=== PATIENT | male | born 1970 | race Caucasian/White ===

== ENCOUNTER 2018-07-04 09:53 | Emergency (ER) | payer OTHER, SELFPAY ==
[2018-07-04 09:56] VITALS: BP 158/102; PULSE 72; RESP 18; TEMP 36.5; O2SAT 98
--- NOTE | 2018-07-04 10:16 | ED.GENADUL_ITS ---
Discharge Plan Disposition Patient Disposition: HOME Condition: Stable Discharge Details Chief Complaint: Orthopedic Clinical Impression: Closed fracture of shaft of left radius Primary Care Provider: JOJO,LOCAL ED Provider: Rusty Newton Home Meds and New Rx's Prescriptions: New hydrocodone-acetaminophen 7.5-325 mg tablet 1 tab PO Q6H PRN (Reason: pain, severe) Qty: 14 RF: 0 ibuprofen [IBU] 600 mg tablet 600 mg PO QID PRN (Reason: pain) Qty: 20 RF: 0 Discharge Instructions Instructions: Arm Fracture in Adults (ED) Additional Instructions: Please leave splinting on at all times and follow-up with a local orthopedist first thing on Saturday for reassessment and possible further treatment as needed. Return immediately to the emergency department for any numbness and tingling, loss of sensation, changes in color of your hand. Referrals: Primary Care Provider [Outside] (If you need any recommendations or referral for an orthopedist locally please call your primary care provider) Discharge Data Discharge Date/Time-TO BE ENTERED AT DEPARTURE: 07/04/18 14:22 Medical Decision Making Patient presenting to the emergency department for chief complaint of left wrist crush injury. 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 Instantaneously he felt severe pain and discomfort and had inability to fully rotate forearm or bend his wrist. Patient is primarily left-handed so this is his dominant hand per patient denies any other injury or trauma. Forearm compartments are soft but swollen, some diminished pulses are palpated and ultrasound was utilized to fully visualize both radial and ulnar pulse that appears to have good flow. Visual examination of the skin to distal radius does show possible break in the skin with concern for open fracture. Patient has significant decreased range of motion of both the wrist and forearm. Radiological imaging was ordered for main concern of fracture but at this time I see no signs of compartment syndrome even though patient does state distal tingling. Pending results patient was okay taking oral medication but did not want any injections for pain so [place] 5/325 was ordered. Admitting radiological imaging results patient continued to have pain and discomfort patient will [place] 5/325 was ordered. After review of radiological imaging that shows a midshaft radius fracture patient was reassessed. RN had clean patient's hand and no corresponding puncture wound and only mild abrasions that patient actually states occurred a week ago during a minor injury. So at this time I doubt open fracture but patient's hand does have slight discoloration and diminished two-point discrimination to the ulnar aspect of the hand along with no dullness to sharp sensation. This is a change in patient's condition. Compartment continue to feel soft and pulses were present with ultrasound imaging. On-call orthopedist Dr. Carter was paged 3 times and never responded. I did have patient reassessed along with attending ER physician home also noted the same assessment but otherwise states that patient is stable so patient was splinted with sugar tong splint and we continue to page Dr. Carter for any further emergent request by orthopod. Was able to finally talk with Dr. Carter who agreed with plan of care for patient be placed in sugar tong splint and have close follow-up with local orthopedist on Saturday for further treatment as needed. Research drug database and patient has no signs of opiate abuse so patient was prescribed hydrocodone and ibuprofen for pain control. After discussion of diagnosis and plan of care patient is no further needs, questions, or concerns and states clear understanding to return to the emergency department for any worsening symptoms. HPI General Mode of arrival: ambulatory . Date/Time Provider Initiated Documentation: 07/04/18 09:59 . Limitations to Documentation: no limitations . Information obtained by: patient . History of Present Illness 48 year old M presents to the emergency department with the chief complaint of Left wrist/forearm crushing, described as moderate, with intensity rated at 8. Quality is described as aching and sharp, and is localized to the left and upper extremity. Patient proximal. Patient started experiencing this minute(s) (20) and it has been constant. No relieving factors improve symptom(s), Movement worsens symptoms . Patient notes no other symptoms.. Patient did receive the following treatments prior to arrival, none Related Data Home Medications Medication Instructions Recorded Confirmed hydrocodone-acetaminophen 1 tab PO Q6H PRN #14 tab 07/04/18 ibuprofen [IBU] 600 mg PO QID PRN #20 tab 07/04/18 Previous Rx's Medication Instructions Recorded hydrocodone-acetaminophen 1 tab PO Q6H PRN #14 tab 07/04/18 ibuprofen [IBU] 600 mg PO QID PRN #20 tab 07/04/18 Allergies Allergy/AdvReac Type Severity Reaction Status Date / Time No Known Allergies Allergy Unverified 07/04/18 10:00 General Stated Complaint: Orthopedic ANNIE: 4 Review of Systems Cardiovascular Denies chest pain, Denies syncope and Denies dyspnea Respiratory Denies dyspnea Musculoskeletal Reports as per HPI, Reports deformity, Reports joint swelling, Reports numbness , Reports stiffness and Reports tingling Neurologic Denies syncope, Reports numbness and Reports tingling PFSH Social History Smoking/Tobacco Use Status: Current every day alcohol intake: current alcohol intake frequency: a few times a month Exam Const General: cooperative and acute distress mild Orientation: alert, awake and oriented x3 Limitations: mental status not altered Resp Effort & Inspection: normal respiratory effort and able to speak in complete sentences Cardio Rate: regular rate Rhythm: regular rhythm Extrem Left upper extremity: shoulder/upper arm Details: inspection abnormal; no tenderness, elbow/forearm Details: tenderness Location: of the mid-shaft forearm ; not of the olecranon, not of the antecubital fossa, not of the lateral epicondyle and not of the medial epicondyle, swelling Location: of the mid- shaft forearm and abnormal ROM Details: held in an abnormal fashion Details: in extension and in pronation and pain with passive ROM Details: with supination, wrist Details: tenderness Location: of the distal radius, of the distal ulna, of the dorsal wrist and of the volar wrist, swelling Location: of the dorsal wrist and of the volar wrist, abnormal ROM Details: pain with active ROM, pain with passive ROM and with range as follows (Limited to no movement of the wrist due to severe discomfort), abrasion (Dorsal aspect of distal forearm) and radial pulse present Details: 1+ and diminished; no ecchymosis and hand Details : normal capillary refill, neuromotor exam normal, neurosensory exam normal ( Patient has full sensation, two-point discrimination, and movement of fingers in all directions.), tendon exam normal Location: of all digits (weakness is noted due to discomfort in forearm/) and normal ROM of fingers Course Vital Signs Temperature 36.5 C 07/04/18 09:56 Pulse 72 07/04/18 09:56 Respiratory Rate 18 07/04/18 09:56 Blood Pressure 158/102 H 07/04/18 09:56 Pulse Oximetry 98 10/05/18 09:56 Temperature 36.5 C 10/05/18 09:56 Temperature Source Temporal Artery Scan 07/04/18 09:56 Pulse 72 07/04/18 09:56 Respiratory Rate 18 07/04/18 09:56 Blood Pressure 158/102 H 07/04/18 09:56 Pulse Oximetry 98 07/04/18 09:56 Oxygen Delivery Method Room Air 07/04/18 09:56 Oxygen Flow Rate 0 07/04/18 09:56 Pain Level 8 07/04/18 09:56
--- NOTE | 2018-07-04 10:32 | DI.RAD_ITS ---
SYMPTOMS/DIAGNOSIS: CRUSH INJURY LEFT HAND: Three views. No priors. No acute fracture or dislocation is seen. There are radiodensities in the subcutaneous tissues of the hand. They appear to be along the skin surface. Please correlate clinically. IMPRESSION: No acute fracture or dislocation. LEFT FOREARM: Two views. There is a transverse fracture at the junction of the middle and distal thirds of the left radius. No significant displacement is seen. There does appear to be comminution of the fracture. No other fractures or dislocations are seen. IMPRESSION: Comminuted fracture involving the distal left radius. LEFT WRIST: Three views. There is a transverse fracture at the distal third of the left radius. There is minimal displacement and some comminution noted. No other fracture or dislocation is seen. There is adjacent soft tissue swelling. IMPRESSION: Minimally displaced fracture involving the distal left radius.
[2018-07-04] MEDS: HYDROcodone 5/Acetaminophen 325 TAB PO ×2 (10:37→11:01)
== END 2018-07-04 14:22 | disposition home or self-care (01) ==
PROVIDERS: Emergency Provider Nurse Practitioner Family
DX: S52.322A Displaced transverse fracture of shaft of left radius, initial encounter for closed fracture (principal); W31.82XA Contact with other commercial machinery, initial encounter
CPT/HCPCS: 25500; 73090; 73110; 73130; L3650